=== PATIENT | female | born 1965 | race Caucasian/White ===

== ENCOUNTER 2016-12-27 15:00 | Emergency (ER) | payer BC ==
[~2016-12-27] VITALS: Ht 170.2 cm; Wt 60.0 kg
[2016-12-27 15:11] VITALS: BP 128/57; PULSE 85; TEMP 97.9; O2SAT 98
--- NOTE | 2016-12-27 15:35 | PD ---
HPI Chief Complaint: Injury Time Seen by Provider: 15:25 Travel History International Travel<30 days: No Contact w/Intl Traveler<30days: No Traveled to known affect area: No History of Present Illness HPI 51-year-old female presents via EMS for evaluation of left ankle pain. She reports that prior to arrival she tripped at the threshold the door and fell, twisting her left ankle. She has pain and soft tissue swelling lateral left ankle and foot. Pain is throbbing, constant, worse with movement. She reports some soreness in her left knee from falling as well. She denies any other injuries and she has no other complaints. [facility] Social History Alcohol Use: Yes Tobacco Use: No Allergies-Medications (Allergen,Severity, Reaction): Coded Allergies: No Known Allergies (Unverified , 12/27/16) Reported Meds & Prescriptions Reported Meds & Active Scripts Active Lortab (Hydrocodone-Acetaminophen) 5-325 Mg Tab 1 Tab PO Q6H PRN Reported Lexapro (Escitalopram Oxalate) 10 Mg Tab 10 Mg PO DAILY Review of Systems Musculoskeletal: Positive: Limited ROM, Pain Skin: Positive Other (positive for bruising and soft tissue swelling) Physical Exam Narrative GENERAL: Well-developed well-nourished female in no acute distress SKIN: Warm and dry. Some bruising and soft tissue swelling noted to the lateral left ankle and foot. HEAD: Atraumatic. Normocephalic. EYES: Pupils equal and round. No scleral icterus. No injection or drainage. ENT: No nasal bleeding or discharge. Mucous membranes pink and moist. NECK: Trachea midline. No JVD. CARDIOVASCULAR: Regular rate and rhythm. No murmur appreciated. RESPIRATORY: No accessory muscle use. Clear to auscultation. Breath sounds equal bilaterally. MUSCULOSKELETAL: No obvious deformities. Skin as noted above. Associated tenderness to palpation lateral left foot and ankle. 2+ dorsalis pedis pulse. Pain with dorsiflexion and plantarflexion left ankle. Achilles tendon intact. Calves nontender. Knee nontender. NEUROLOGICAL: Awake and alert. No obvious cranial nerve deficits. Motor grossly within normal limits. Normal speech. Data Data Last Documented VS Vital Signs Date Time Temp Pulse Resp B/P Pulse Ox O2 Delivery O2 Flow Rate FiO2 12/27/16 15:11 97.9 85 128/57 98 Orders Ankle, Complete ([id number]) (12/27/16 ) Foot, Complete (Occ3wyl) (12/27/16 ) Naproxen (Naprosyn) (12/27/16 15:45) Acetamin-Codeine 300-30 Mg (Tylenol-Code (12/27/16 15:45) Ice/Cold Pack (12/27/16 15:32) Crutches (12/27/16 16:11) Splint Or Brace Apply/Monitor (12/27/16 16:11) Radiology Film Requests (12/27/16 ) Ankle, Limited (Ap&Lat) (12/27/16 ) [facility] Medical Decision Making Medical Screen Exam Complete: Yes Emergency Medical Condition: Yes Medical Record Reviewed: Yes Differential Diagnosis Lateral ankle sprain, fibular fracture, Lisfranc injury, metatarsal fracture Narrative Course 50-year-old female for lateral left ankle pain after tripping on the threshold of the door, twisting her left ankle. Examination reveals some soft tissue swelling around the left ankle lateral malleolus, associated tenderness to palpation. X-ray imaging per radiology read reveals no acute fracture however on the anterior view there appears to be a nondisplaced lucency 1-2 cm proximal to the lateral malleolus which could be suggestive of a nondisplaced distal fibula fracture. Discussed with Dr. Loving the radiologist requested additional views which were negative for fracture. The patient was placed in a posterior short leg splint, provided crutches. She is from [place], currently on medication, returning home next week. She will be given a copy of her x-ray and advised to follow-up with her primary care physician upon returning home for repeat x-ray imaging. Diagnosis Primary Impression: Left ankle injury Qualified Code: S99.912A - Left ankle injury, initial encounter Referrals: Primary Care Physician Additional Instructions: Do not remove the splint. Crutches. Ice pack several times a day 15 minutes at a time. Elevate. Lortab for breakthrough pain. As discussed, on one view of the left ankle there appears to be a possible nondisplaced fibular fracture. Follow-up with your primary care physician in 10-14 days for repeat x-ray imaging. Return for any emergent medical conditions. Med/Other Pt SpecificInfo: Prescription(s) given, Orthopedic Instructions Scripts Hydrocodone-Acetaminophen (Lortab)5-325 Mg Tab1 Tab PO Q6H PRN (PAIN) #20 TAB Ref 0 Prov:Mena Yañez MD 12/27/16 Disposition: 01 DISCHARGE HOME Condition: Stable Hiram Cheng Dec 27, 2016 15:35
[2016-12-27] MEDS ORDERED: ACETAMINOPHEN/CODEINE 300 MG/30 MG TAB PO ONE (15:45)
[2016-12-27] MEDS ORDERED: NAPROXEN 500 MG TAB PO ONE (15:45)
[2016-12-27] MEDS ORDERED: HYDR-3533 PO (16:11)
--- NOTE | 2016-12-27 16:18 | RADRPT ---
EXAM DATE/TIME: 12/27/2016 15:46 [facility] COMPARISON: No previous studies available for comparison. INDICATIONS : Left ankle pain and swelling, fell MEDICAL HISTORY : None. SURGICAL HISTORY : None. ENCOUNTER: Initial ACUITY: 1 day PAIN SCORE: 5/10 LOCATION: Left Ankle FINDINGS: Three-view examination was performed. There is moderate soft tissue swelling about the lateral aspec t of the ankle. No fractures seen. Ankle mortise is intact. No radiopaque foreign bodies. CONCLUSION: Lateral soft tissue swelling. No fracture seen. Pete Loving MD on December 27, 2016 at 16:15 Board Certified Radiologist. This report was verified electronically.
--- NOTE | 2016-12-27 16:18 | RADRPT ---
EXAM DATE/TIME: 12/27/2016 15:47 [facility] COMPARISON: No previous studies available for comparison. INDICATIONS : Left foot pain, fell MEDICAL HISTORY : None. SURGICAL HISTORY : None. ENCOUNTER: Initial ACUITY: 1 day PAIN SCORE: 5/10 LOCATION: Left Foot FINDINGS: Three view examination of the left foot demonstrates no soft tissue swelling, dislocation, or fractur e. The tarsal bones appear intact. The interphalangeal and metatarsophalangeal joints are intact. The calcaneus is intact. Bony mineralization is normal. CONCLUSION: No evidence of recent bony injury. Pete Loving MD on December 27, 2016 at 16:16 Board Certified Radiologist. This report was verified electronically.
--- NOTE | 2016-12-27 16:55 | RADRPT ---
EXAM DATE/TIME: 12/27/2016 16:37 [facility] COMPARISON: ANKLE LEFT COMPLETE ([id number]), December 27, 2016, 15:46. INDICATIONS : Left ankle pain and swelling, fell MEDICAL HISTORY : None. SURGICAL HISTORY : None. ENCOUNTER: Initial ACUITY: 1 day PAIN SCORE: 4/10 LOCATION: Left Ankle FINDINGS: A frontal and reverse oblique view was performed to specifically evaluate the diametaphyseal region o f the distal fibula adjacent to an area of soft tissue swelling. No definite fractures seen. There is no cortical step off on the either the medial or lateral cortex. CONCLUSION: No evidence of distal fibular fracture on additional views performed of the left ankle. Pete Loving MD on December 27, 2016 at 16:50 Board Certified Radiologist. This report was verified electronically.
[2016-12-27] MEDS ORDERED: LEXA10TA PO (16:56)
== END 2016-12-27 18:08 | disposition home or self-care (01) ==
LOC: NEPD 15:00
DX: S99.912A Unspecified injury of left ankle, initial encounter (principal); M25.562 Pain in left knee; W01.0XXA Fall on same level from slipping, tripping and stumbling without subsequent striking against object, initial encounter; X50.1XXA Overexertion from prolonged static or awkward postures, initial encounter
CPT/HCPCS: 29515; 73600; 73610; 73630; 99284; E0113